=== PATIENT | female | born 1955 ===

== ENCOUNTER → 2023-06-30 09:31 | Outpatient (POV) | payer SELFPAY | PROVIDERS: Visit Provider Nurse Practitioner | DX: Z00.00 Encounter for general adult medical examination without abnormal findings (principal) ==

== ENCOUNTER 2024-05-21 08:28 | Outpatient (POV) | payer SELFPAY | END 2024-05-21 23:59 | disposition home or self-care (01) | LOC: SC 08:28 | PROVIDERS: Visit Provider Nurse Practitioner | DX: Z00.00 Encounter for general adult medical examination without abnormal findings (principal) ==